=== PATIENT | female | born 1995 | race Caucasian/White ===

== ENCOUNTER 2023-01-13 11:29 | Emergency (ER) | payer OTHER ==
[~2023-01-13] VITALS: Ht 147.3 cm; Wt 87.1 kg
--- OUTSIDE RECORDS SUMMARY | 2023-01-13 11:32 | XMS ---
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 Huma VISIT COUNT (12 MO.) [address] [place] [address] JAROD Peralta TOTAL 12 NOTE: Visits indicate total known visits. ED/UCC VISIT TRACKING (12 MO.) 01/13/2023 11:31 [facility] OR TYPE: Emergency COMPLAINT: - UPPER ABD PAIN, BLOATING 11/23/2022 09:38 [facility] DIAGNOSES: - Generalized abdominal pain - Opioid use, unspecified with withdrawal - SHORTNESS OFBREATH VOMITING 11/19/2022 10:40 [facility] [place] TYPE: Emergency DIAGNOSES: - Unspecified abdominal pain - VOMITTING 08/18/2022 21:46 [facility] [place] [place] TYPE: Emergency DIAGNOSES: - Abdominal distension (gaseous) - Epigastric pain - Nausea with vomiting, unspecified - ABD PAIN BLOATING 08/09/2022 09:12 [facility] DIAGNOSES: - Epigastric pain - SIDE PAIN 07/14/2022 12:07 [employer] [facility] [employer] [place] TYPE: Emergency DIAGNOSES: - Unspecified abdominal pain - KIDNEY STONES 07/07/2022 15:37 [facility] [place] TYPE: Emergency DIAGNOSES: - Unspecified abdominal pain - kidney stones 05/19/2022 15:55 [facility] [place] TYPE: Emergency DIAGNOSES: - Calculus of kidney - Unspecified acute noninfective otitis externa, left ear - FLANK PAIN, EAR PAIN 03/25/2022 15:24 [facility] [place] TYPE: Emergency DIAGNOSES: - Diarrhea, unspecified - Urinary tract infection, site not specified - ALLERGIC REACTION 03/18/2022 11:51 [facility] [place] TYPE: Emergency DIAGNOSES: - Acute suppurative otitis media without spontaneous rupture of ear drum, bilateral - Other infective otitis externa, bilateral - R EAR PAIN 03/13/2022 12:28 [facility] [place] TYPE: Emergency DIAGNOSES: - Other urogenital candidiasis - Otitis media, unspecified, left ear - Unspecified otitis externa, right ear - RIGHT EAR PAIN 01/26/2022 10:30 [facility] [place] TYPE: Emergency DIAGNOSES: - Personal history of urinary calculi - Unspecified abdominal pain - POSS KIDNEY INF INPATIENT VISIT TRACKING (12 MO.) No inpatient visits to display in this time frame [email or web address]
[2023-01-13] MEDS ORDERED: HYDROXYZINE HCL50 MG PO (11:53)
[2023-01-13] MEDS ORDERED: LEVOTHYROXINE50 MC1 PO (11:53)
[2023-01-13] MEDS ORDERED: EDLUAR10 MG SL (11:53)
[2023-01-13] MEDS ORDERED: NEURONTIN300 MG PO (11:53)
[2023-01-13] MEDS ORDERED: CYCLOBENZAPRINE10 MG PO (11:54)
[2023-01-13 12:15] LABS: BASOPHILS 0.4 % (0-2); HEMATOCRIT 41.9 % (35.0-50.0); HEMOGLOBIN 14.1 g/dL (12.0-18.0); LYMPHOCYTES 25.6 % (24-44); MCH 28.3 (27-36); MCHC 33.6 g/dl (30-36); MCV 84.2 fl (81-99); MONOCYTES 4.4 % (0-12); NEUTROPHILS 68.6 % (39-80); PLATELET COUNT 605 K/uL (140-440); RBC 4.98 M/ul (4.3-5.7); RDW 14.2 (10.5-15.0)
[2023-01-13 12:30] LABS: ALBUMIN 4.4 g/dL (3.4-5.0); ALBUMIN/GLOBULIN RATIO 1.16 (1.1-2.4); BILIRUBIN, TOTAL 0.4 ng/dL (0.2-1.0); BUN/CREATININE RATIO 10.11 (6.0-28.6); CALCIUM 9.1 mg/dL (8.5-10.1); CREATININE, SERUM 0.89 mg/dL (0.55-1.02); PROTEIN, TOTAL 8.2 g/dL (6.4-8.2)
[2023-01-13 14:39] LABS: BILIRUBIN, URINE POSITIVE (negative); BLOOD/HGB, URINE NEGATIVE (Negative); KETONE, URINE >=80 (Negative); LEUK ESTERASE, URINE NEGATIVE (negative); NITRITE, URINE NEGATIVE (negative)
[2023-01-13] MEDS ORDERED: DICYCLOMINE HCL20 MG PO (14:49)
[2023-01-13] MEDS ORDERED: ONDANSETRON ODT4 MG PO (14:49)
[2023-01-13] MEDS ORDERED: PROTONIX40 MG PO (14:52)
[2023-01-13 15:10] VITALS: BP 125/86
== END 2023-01-13 15:11 | disposition home or self-care (01) ==
LOC: ED 11:29
PROVIDERS: Emergency Medicine
DX: R11.10 Vomiting, unspecified (principal); K29.70 Gastritis, unspecified, without bleeding; E66.9 Obesity, unspecified; Z88.8 Allergy status to other drugs, medicaments and biological substances; Z88.6 Allergy status to analgesic agent; Z79.890 Hormone replacement therapy; Z79.899 Other long term (current) drug therapy
CPT/HCPCS: 36415; 74022; 80053; 81003; 83690; 84703; 85025; J2405; J7030